=== PATIENT | female | born 1935 | race Caucasian/White ===

== ENCOUNTER 2016-08-12 18:37 | Inpatient (IN) | payer MEDICARE, OTHER ==
--- NOTE | ~2016-08-12 | EKG ---
PATIENT: AMBROCIO ARENAS UNIT #: [id number] Ventricular Rate: 58 BPM Atrial Rate: 58 BPM QRS Duration: 124 ms Q-T Interval: 450 ms QTC Calculation(Bezet): 441 ms Calculated R [place]: -52 degrees Calculated T [place]: 70 degrees Diagnosis Line: Sinus rhythm with 1st degree A-V block Diagnosis Line: Left anterior fascicular block Diagnosis Line: Nonspecific T wave abnormality Baseline wander Diagnosis Line: Abnormal ECG Diagnosis Line: When compared with ECG of 02-AUG-2015 13:50, Diagnosis Line: Current undetermined rhythm precludes rhythm Diagnosis Line: comparison, needs review Diagnosis Line: ST now depressed in Inferior leads Diagnosis Line: Nonspecific T wave abnormality has replaced Diagnosis Line: inverted T waves in Inferior leads Diagnosis Line: Nonspecific T wave abnormality, worse in Lateral Diagnosis Line: leads Diagnosis Line: Confirmed by MIGUEL TRUJILLO MD ([id number]) on 08/16/2016 Diagnosis Line: 10:38:32 PM INTERPRETING MD: CASSANDRA DAO
--- NOTE | ~2016-08-12 | DS ---
Unit #: [id number] #: [id number] Patient: AMBROCIO ARENAS [id number] [facility]. [place], [place] [address] [id number] I MR#: [id number] NAME: AMBROCIO ARENAS ROOM: 47 Age: 81 Sex: F Admission Date: 08/12/2016 : 1935 Discharge Date: 08/14/2016 Attending Physician: Akira Adair M.D. Primary Care Physician: Coleman Bustillos M.D. DISCHARGE SUMMARY REASON FOR ADMISSION Dizziness. HISTORY OF PRESENT ILLNESS/HOSPITAL COURSE The patient is a very pleasant 81-year-old female with prior history of depression, atrial fibrillation, TIA/CVA in 2010, hypertension, seizure disorder, who presented to the ER with complaints of dizziness, difficulty with ambulation, and profound weakness. Please see H and P for complete details. She underwent a CT head, which did not reveal an acute process. Chest x-ray was also negative. Initial urinalysis was positive and thus she was admitted for UTI and possible TIA/stroke evaluation. MRI of the brain with and without contrast was performed on 08/13/2016 did reveal no acute findings within the brain. There was atrophy with chronic small vessel ischemic change in the white matter. There is a small area of chronic hemosiderin deposition in the right frontal white matter, which may be related to an old hemorrhagic stroke. It was nonspecific. MRA head was also performed, which did not reveal any acute aneurysm. There was sparse flow which was noted in the distal INVOICING SPECIALIST and MCA branches. It was artifactual versus true volume decrease; however, the patient did show marked improvement after receiving IV antibiotics while she was here. In fact, the majority of her deficits including dizziness as well as difficulty with ambulation improved dramatically. Final urine culture result reveal E coli was sensitive to Rocephin while she was here and at the time of discharge, she was given a prescription for Omnicef. It was also noted her B12 level was 384. It was replenished with B12 while she was here and at time of discharge, it was recommended that she have a discussion with her primary care physician for possible outpatient management. At this point in time, she is otherwise stable to be discharged home. She will follow up with her primary care physician in regard to the B12 deficiency. She will also require repeat urinalysis in approximately 7 to 10 days. FINAL DISCHARGE DIAGNOSES 1. Dizziness/immobility syndrome with acute onset. 2. Prior history of cerebrovascular accident in 2010 with no acute Unit #: [id number] #: [id number] Patient: AMBROCIO ARENAS process noted in this hospital admission. 3. Underlying history of atrial fibrillation, on chronic anticoagulation with Coumadin. 4. Depression. 5. Hypertension. 6. Seizure disorder. FINAL DISCHARGE MEDICATIONS Coumadin 10 mg p.o. daily, Tegretol 100 mg p.o. b.i.d., Tegretol 200 mg p.o. q.h.s., Lexapro 20 mg p.o. daily, Norvasc 10 mg p.o. daily, Omnicef 300 mg p.o. b.i.d. for 6 days, Lotensin 20 mg p.o. daily, multivitamin daily, omeprazole 40 mg p.o. daily. DISCHARGE CONDITION Stable. DISCHARGE DISPOSITION Home. Dictated by... Eliane Yen/khurram TD: 08/15/2016 22:20 JOB #: [id number] DISCHARGE SUMMARY Page 1 of 1 X Akira Adair MD X DISCHARGE SUMMARY
--- NOTE | ~2016-08-12 | MR134 ---
[facility] A Service of [facility] RADIOLOGY TEXT RESULTS PATIENT: AMBROCIO ARENAS LOCATION: [facility]05-23 : 34 UNIT #: [id number] AGE: [address]: Akira Adair MD SEX: F ORDER DR: [id number] [facility] [address] [place], [place] [address] [id number] I MR#: [id number] Acc #: [id number] NAME: AMBROCIO ARENAS : 1935 SEX: F STUDY DATE/TIME: 08/13/2016 17:17 UNIT: [facility] ROOM: [facility] STUDY DESCRIPTION: MR MRA Neck Wo Contrast Attending Physician: Akira Adair M.D. Ordering Physician: Akira Adair M.D. Primary Care Physician: Coleman Bustillos M.D. MRI CENTER REPORT This report is preliminary unless electronic signature is present. EXAM MRA neck 08/13/2016 HISTORY Dizziness and ataxia with nausea and vomiting for one day. Prior history of seizures and stroke. TECHNIQUE Noncontrast 2D izsp-mh-rdtdry images were obtained through the neck. 3D reformatted images of the arterial system were obtained. COMPARISON No comparison. FINDINGS The exam is motion-degraded. Allowing for the artifact, no definite stenosis by NASCET criteria is seen in the cervical, vertebral or carotid arteries. The left vertebral artery is slightly dominant but both appear widely patent. IMPRESSION Allowing for motion, the examination is essentially negative. There is no evidence of stenosis by NASCET criteria and the carotid and vertebral arteries within the neck. Dictated by... Woody Causey Jr., M.D. THIS IS AN ELECTRONICALLY VERIFIED REPORT Woody Causey Jr., M.D. at 08/16/2016 7:28 AM [facility] A Service [facility] RADIOLOGY TEXT RESULTS PATIENT: AMBROCIO ARENAS LOCATION: [facility]05-23 : 34 UNIT #: [id number] AGE: [address]: Akira Adair MD SEX: F ORDER DR: GOYO/rafa TD: 08/14/2016 02:55 JOB #: [id number] MRI CENTER REPORT Page 1 of 1 COPY
--- NOTE | ~2016-08-12 | MR17 ---
[facility] A Service of [facility] RADIOLOGY TEXT RESULTS PATIENT: AMBROCIO ARENAS LOCATION: [place] [address]- : 34 UNIT #: [id number] AGE: [address]: Akira Adair MD SEX: F ORDER DR: [id number] [facility] [address] [place], [place] [address] [id number] I MR#: [id number] Acc #: [id number] NAME: AMBROCIO ARENAS : 1935 SEX: F STUDY DATE/TIME: 08/13/2016 16:48 UNIT: [facility] ROOM: [facility] STUDY DESCRIPTION: MR Brain WWo Contrast Attending Physician: Akira Adair M.D. Ordering Physician: Akira Adair M.D. Primary Care Physician: Coleman Bustillos M.D. MRI CENTER REPORT This report is preliminary unless electronic signature is present. EXAM MRI brain 08/13/2016 HISTORY Dizziness and ataxia with nausea and vomiting for one day. Previous history of seizure and stroke. TECHNIQUE Multisequence, multiplanar imaging was performed through the brain before and after the IV administration of 16 mL of MultiHance contrast. COMPARISON Head CT performed 08/12/2016. FINDINGS Diffusion imaging reveals no evidence of acute or subacute ischemia. There is a mild degree of generalized atrophy. Ventricular size configuration are within normal limits. Scattered T2 hyperintensities in the white matter are compatible with chronic small vessel ischemic disease. No evidence of hemorrhage. Old infarct noted in the white matter of the right frontal lobe adjacent to the anterior horn of the right lateral ventricle. Small lacunar infarct present in the right basal ganglia as well. There are no masses, and there is no pathologic contrast enhancement. The major intracranial flow voids are maintained. There is some hemosiderin deposition in the right frontal white matter which may be the site of an old hemorrhagic small stroke. IMPRESSION 1. No acute findings in the brain. No evidence of acute stroke or hemorrhage. 2. No pathologic contrast enhancement. No masses. 3. Atrophy with chronic small vessel ischemic disease in the white [facility] A Service of [facility] RADIOLOGY TEXT RESULTS PATIENT: AMBROCIO ARENAS LOCATION: [facility] 471-01 : 34 UNIT #: [id number] AGE: [address]: Akira Adair MD SEX: F ORDER DR: matter. 4. Small area of chronic hemosiderin deposition in the right frontal white matter may be related to an old hemorrhagic stroke. It is nonspecific. Dictated by... Woody Causey Jr., M.D. THIS IS AN ELECTRONICALLY VERIFIED REPORT Woody Causey Jr., M.D. at 08/16/2016 7:28 AM GOYO/rafa TD: 08/14/2016 02:24 JOB #: [id number] MRI CENTER REPORT Page 1 of 1 COPY
--- NOTE | ~2016-08-12 | HP ---
Unit #: [id number] #: [id number] Patient: AMBROCIO ARENAS [id number] [place], [place] [address] [id number] MR#: [id number] NAME: AMBROCIO ARENAS ROOM: Age: 81 Sex: F Admission Date: 08/12/2016 : 1935 Attending Physician: Woody Bernstein M.D. Primary Care Physician: Coleman Bustillos M.D. HISTORY AND PHYSICAL CHIEF COMPLAINT Dizziness. HISTORY OF PRESENT ILLNESS The patient is an 81-year-old legally blind female with a history of a depression and afib and hypertension and seizure, brought to the emergency room complaining of the dizziness. The patient stated the dizziness started around lunchtime and the patient was unable to get up and walk and unable to eat. The patient also complains of the headache and nausea and vomiting associated with that. The patient had a workup with a CT of the head and chest x-ray, both negative, and the UA shows positive nitrite and 10 to 25 urine RBCs and urine WBCs 2 to 5 and 4+ urine bacteria. Patient is being admitted for the above reasons; denies any fever, chills, any head trauma or any new medications. PAST MEDICAL HISTORY History of afib, depression, hypertension and the seizures. PAST SURGICAL HISTORY History of right and left knee surgery, right breast surgery, hysterectomy, back surgery. HOME MEDICATIONS She is on Norvasc, Lotensin, Carbatrol omeprazole, Lexapro and Coumadin, Centrum and Tegretol. ALLERGIES Honey and IV dye. SOCIAL HISTORY No history of smoking, alcohol or any illicit drug abuse. FAMILY HISTORY Reviewed and none. REVIEW OF SYMPTOMS Fourteen-point review of symptoms performed and only pertinent positive findings are described above, remaining are negative. PHYSICAL EXAMINATION GENERAL APPEARANCE: On examination the patient is lying on a bed not in acute distress. VITAL SIGNS: Temperature 98.4, pulse 56, respiratory rate 16, blood Unit #: [id number] #: [id number] Patient: AMBROCIO ARENAS pressure 158/77, sating 94% at room air. HEENT: Head atraumatic, normocephalic. Extraocular movements are intact. Dry mucous membranes. NECK: Supple. No JVD. LUNGS: Clear to auscultation bilaterally. HEART: Irregular rate and rhythm. ABDOMEN: Soft, positive bowel sounds. EXTREMITIES: No cyanosis. No clubbing. NEUROLOGIC: Awake, alert, oriented. No gross focal motor deficit. DIAGNOSTIC STUDIES LABORATORY DATA: Glucose 140, BUN 16, creatinine 0.7, sodium 138, potassium 4, chloride 100, bicarb 26, calcium 8.7, total protein 6.9, albumin 4.4, AST 31, ALT 17, alkaline phosphatase 130, INR is 2.1, troponin less than 0.05, WBC 3.5, hemoglobin 14, hematocrit 42.5, platelets 175. UA shows positive nitrite, 1+ protein and 10 to 25 urine RBCs and 2 to 5 urine WBCs and 4+ urine bacteria. CARDIOVASCULAR: The EKG shows a rate of 58 beats per minute and left anterior fascicular block and nonspecific T-wave abnormalities. IMAGING: The chest x-ray shows mild interstitial prominence, old calcified granulomatous disease. The CT of the head showed volume loss and white matter change. No significant interval change since . No acute abnormality. ASSESSMENT 1. Dizziness. 2. Urinary tract infection/bacteruria. 3. Nausea and vomiting. 4. Atrial fibrillation. PLAN Plan to admit the patient to the observation with the telemetry. Will start empirically with IV Rocephin and follow up with urine cultures and continue with the Zofran for the nausea and vomiting and repeat the labs again in the morning and further recommendations will follow as more lab results are available. Dictated by Eliane Nj/arnold TD: 08/12/2016 20:40 JOB #: [id number] Unit #: [id number] #: [id number] Patient: AMBROCIO ARENAS HISTORY AND PHYSICAL Page 1 of 1 X X HISTORY AND PHYSICAL
--- NOTE | ~2016-08-12 | CT71 ---
[facility] A Service of [facility] RADIOLOGY TEXT RESULTS PATIENT: AMBROCIO ARENAS LOCATION: [facility] : 34 UNIT #: [id number] AGE: [address]: Akira Adair MD SEX: F ORDER DR: [id number] [facility] [place], [place] [address] [id number] P MR#: [id number] Acc #: [id number] NAME: AMBROCIO ARENAS : 1935 SEX: F STUDY DATE/TIME: 08/12/2016 16:08 UNIT: KIM ROOM: STUDY DESCRIPTION: CT Head Wo Contrast Attending Physician: Woody Bernstein M.D. Ordering Physician: Woody Bernstein M.D. Primary Care Physician: Colmean Bustillos M.D. MEDICAL IMAGING REPORT This report is preliminary unless electronic signature is present EXAM Head CT, no contrast, 08/12/2016. COMPARISON Prior head CT, 04/07/2016. PROCEDURE Routine unenhanced head CT. HISTORY Dizziness, nausea and vomiting, and atrial fibrillation. FINDINGS There is no intracranial hemorrhage. There is no mass or hydrocephalus. There is volume loss and white matter change, nonspecific, but typical of small vessel disease. No acute abnormality is seen. No interval change since 04/07/2016. TECHNIQUE This CT exam was performed with one or more of the following radiation dose reduction techniques: automatic exposure control, adjustment of mA and/or kV according to patient size, and iterative reconstruction. IMPRESSION Volume loss and white matter change; no significant interval change since 04/07/2016. No acute abnormality. Dictated by... Alexandru Ramirez M.D. [facility] A Service of [facility] RADIOLOGY TEXT RESULTS PATIENT: AMBROCIO ARENAS LOCATION: [facility] : 34 UNIT #: [id number] AGE: [address]: Akira Adair MD SEX: F ORDER DR: THIS IS AN ELECTRONICALLY VERIFIED REPORT Alexandru Ramirez M.D. at 08/16/2016 2:36 PM CHINTAN/shawn TD: 08/12/2016 18:02 JOB #: [id number] MEDICAL IMAGING REPORT Page 1 of 1 COPY
--- NOTE | ~2016-08-12 | MR122 ---
[facility] A Service of [facility] RADIOLOGY TEXT RESULTS PATIENT: AMBROCIO ARENAS LOCATION: [facility] 471-01 : 34 UNIT #: [id number] AGE: [address]: Akira Adair MD SEX: F ORDER DR: [id number] [facility] [address] [place], [place] [address] [id number] I MR#: [id number] Acc #: [id number] NAME: AMBROCIO ARENAS : 1935 SEX: F STUDY DATE/TIME: 08/13/2016 17:07 UNIT: [facility] ROOM: [facility] STUDY DESCRIPTION: MR MRA Head Wo Contrast Attending Physician: Akira Adair M.D. Ordering Physician: Akira Adair M.D. Primary Care Physician: Coleman Bustillos M.D. MRI CENTER REPORT This report is preliminary unless electronic signature is present. EXAM MRA brain 08/13/2016 HISTORY Onset of dizziness and ataxia with nausea and vomiting yesterday. Prior seizure history and prior history of stroke. TECHNIQUE 3D contrast lvsa-np-jfyktl images were obtained through the brain. 3D reformatted images of the arterial system were obtained. Study is repeated due to motion. No comparison. FINDINGS Exam is degraded by motion. The vertebral and basilar arteries are normal. Relatively sparse flow is demonstrated in distal MVA and SHOW WORKER branches on both sides of the brain. This may be due to technical artifact on the exam accentuated by motion. Normal flow is seen in both anterior cerebral arteries. No aneurysm is seen. Some of the reformatted images suggest an area of severe narrowing or cutoff in the right MCA prior to its bifurcation, but this cannot be confirmed on the source images. Consider head and neck CT angiogram for follow-up if the patient's renal function permits. IMPRESSION Motion-degraded exam, despite repeating it. No definite aneurysm is seen. There is relatively sparse flow in the distal SHOW WORKER and MCA branches. It is unclear if this is artifactual or a true flow volume decrease. Artifact is favored to a large degree. Normal flow is demonstrated in both anterior cerebral arteries. Potential vascular cutoff just before the right MCA bifurcation is seen on some of the reformatted images but cannot be confirmed definitively on the source images and this could be artifactual as well. Consider follow-up with head and neck CT angiogram if patient's STS. [facility] A Service of [facility] & [facility] RADIOLOGY TEXT RESULTS PATIENT: AMBROCIO ARENAS LOCATION: [place] [address] : 34 UNIT #: [id number] AGE: [address]: Akira Adair MD SEX: F ORDER DR: renal function permits. Dictated by... Woody Causey Jr., M.D. THIS IS AN ELECTRONICALLY VERIFIED REPORT Woody Causey Jr., M.D. at 08/16/2016 7:28 AM GOYO/rafa TD: 08/14/2016 02:35 JOB #: [id number] MRI CENTER REPORT Page 1 of 1 COPY
--- NOTE | ~2016-08-12 | CR72 ---
[facility] A Service of [facility] RADIOLOGY TEXT RESULTS PATIENT: AMBROCIO ARENAS LOCATION: [place] [address] : 34 UNIT #: [id number] AGE: [address]: Akira Adair MD SEX: F ORDER DR: [id number] [facility] [address] [place], [place] [address] [id number] P MR#: [id number] Acc #: [id number] NAME: AMBROCIO ARENAS : 1935 SEX: F STUDY DATE/TIME: 08/12/2016 15:48 UNIT: KIM ROOM: STUDY DESCRIPTION: CR Chest Single View Portable Attending Physician: Woody Bernstein M.D. Ordering Physician: Woody Bernstein M.D. Primary Care Physician: Coleman Bustillos M.D. MEDICAL IMAGING REPORT This report is preliminary unless electronic signature is present EXAM Portable chest. HISTORY 81-year-old female with dizziness today. COMPARISON STUDIES There are no comparisons. FINDINGS Low-volume inspiration. Mild interstitial prominence. Old calcified granulomatous disease. Atherosclerotic calcifications of the aorta. Heart size probably within normal limits. IMPRESSION Mild interstitial prominence. Old calcified granulomatous disease. Dictated by... Godwin Perez M.D. THIS IS AN ELECTRONICALLY VERIFIED REPORT Godwin Perez M.D. at 08/13/2016 9:04 AM ASIA/derek TD: 08/12/2016 17:21 JOB #: [id number] MEDICAL IMAGING REPORT Page 1 of 1 COPY
[2016-08-12 16:20] LABS: POC - CKMB 1.9 ng/mL (0.0-7.9); POC - TROPONIN <0.05 ng/mL (<=0.05)
[2016-08-12 16:25] LABS: BASOPHIL% 1.2 % (0-2.5); EOSINOPHIL# 0.3 X10e3 (0-0.7); EOSINOPHIL% 7.2 % (0.0-7.0); HEMATOCRIT 42.5 % (35.0-45.0); LYMPHOCYTE# 0.9 X10e3 (1.0-3.5); LYMPHOCYTE% 26.2 % (17.0-45.0); MEAN CELL VOLUME 85.8 FL (83-96); MEAN CORPUSCULAR HEMOGLOBIN 28.2 PG (28-34); MEAN CORPUSCULAR HGB CONC 32.9 g/dL (30-36); MEAN PLATELET VOLUME 8.4 FL (6.5-11.5); MONOCYTE# 0.4 X10e3 (0-1.0); MONOCYTE% 10.1 % (3.0-12.0); NEUTROPHIL# 1.9 X10e3 (1.5-7.1); NEUTROPHIL% 55.3 % (40-75); PLATELET COUNT 175 X10e3 (140-420); RED BLOOD COUNT 4.96 X10e (3.90-5.30); RED CELL DISTRIBUTION WIDTH 13.4 % (11.0-15.5); WHITE BLOOD COUNT 3.5 X10e3 (4.0-10.5)
[2016-08-12 16:37] LABS: INR 2.1; PROTHROMBIN TIME (PATIENT) 22.3 SECONDS (9.6-11.5)
[2016-08-12 16:37] LABS: DIFF IND NO
[2016-08-12 16:43] LABS: ALBUMIN SERUM 4.4 g/dL (3.5-5.0); ALKALINE PHOSPHATASE 130 U/L (32-92); ALT (SGPT) 17 U/L (10-40); AST (SGOT) 31 U/L (10-42); BILIRUBIN,TOTAL 0.8 mg/dL (0.2-2.0); BLOOD UREA NITROGEN 16 mg/dL (9-23); BUN/CREATININE RATIO 22.85; CALCIUM SERUM 8.7 mg/dL (8.4-10.2); CARBON DIOXIDE 26 mmol/L (22-31); CHLORIDE 100 mmol/L (100-111); CREATININE SERUM 0.7 mg/dL (0.6-1.4); GLOM FILT RATE Estimated 80.7 mL/min (>60); GLUCOSE FASTING 140 mg/dL (70-110); PROTEIN TOTAL SERUM 6.9 g/dL (6.0-8.3); SODIUM 138 mmol/L (135-145)
[2016-08-12 16:48] LABS: BILIRUBIN, DIRECT <0.1 mg/dL (0.0-0.2); BILIRUBIN,INDIRECT 0.7 mg/dL (0.0-0.9)
[2016-08-12 17:17] LABS: URINE SOURCE CLEAN CATCH
[2016-08-12 17:33] LABS: URINE APPEARANCE CLEAR; URINE BILIRUBIN NEG (NEG); URINE BLOOD 1+ (NEG); URINE COLOR YELLOW; URINE GLUCOSE NEG (NEG); URINE KETONE NEG (NEG); URINE LEUKOCYTE ESTERASE NEG (NEG); URINE NITRATE POS (NEG); URINE PROTEIN 1+ (NEG); URINE SPECIFIC GRAVITY 1.014 (1.003-1.035); URINE UROBILINOGEN 0.2 MG/DL (NEG)
[2016-08-12 17:39] LABS: CULTURE INDICATED? YES; URINE BACTERIA AUWI 4+ (NEGATIVE); URINE SQUAMOUS EPITHELIAL CELL NONE SEEN /[HPF]
[2016-08-12] MEDS ORDERED: LOTENSIN20 MG PO (19:14)
[2016-08-12] MEDS ORDERED: NORVASC10 MG PO (19:14)
[2016-08-12] MEDS ORDERED: OMEPRAZOLE40 M1 PO (19:15)
[2016-08-12] MEDS ORDERED: CARBATROL100 MG PO (19:15)
[2016-08-12] MEDS ORDERED: LEXAPRO20 MG PO (19:16)
[2016-08-12] MEDS ORDERED: COUMADIN10 MG PO (19:16)
[2016-08-12] MEDS ORDERED: CENTRUM SILVER PO (19:16)
[2016-08-12] MEDS ORDERED: OCUVITE TABLET1 TA1 PO (19:16)
[2016-08-12] MEDS ORDERED: TEGRETOL PO (19:19)
[2016-08-13 04:15] LABS: EOSINOPHIL# 0.3 X10e3 (0-0.7); EOSINOPHIL% 7.4 % (0.0-7.0); HEMATOCRIT 38.6 % (35.0-45.0); HEMOGLOBIN 12.9 gm/dL (12.0-16.0); LYMPHOCYTE# 1.3 X10e3 (1.0-3.5); LYMPHOCYTE% 31.8 % (17.0-45.0); MEAN CORPUSCULAR HEMOGLOBIN 28.3 PG (28-34); MEAN CORPUSCULAR HGB CONC 33.3 g/dL (30-36); MEAN PLATELET VOLUME 7.9 FL (6.5-11.5); MONOCYTE# 0.5 X10e3 (0-1.0); MONOCYTE% 12.9 % (3.0-12.0); NEUTROPHIL% 46.9 % (40-75); PLATELET COUNT 162 X10e3 (140-420); RED BLOOD COUNT 4.54 X10e (3.90-5.30); RED CELL DISTRIBUTION WIDTH 12.9 % (11.0-15.5); WHITE BLOOD COUNT 4.2 X10e3 (4.0-10.5)
[2016-08-13 04:16] LABS: DIFF IND NO
[2016-08-13 04:18] LABS: PROTHROMBIN TIME (PATIENT) 21.4 SECONDS (9.6-11.5)
[2016-08-13 04:42] LABS: BUN/CREATININE RATIO 18.75; CALCIUM SERUM 8.4 mg/dL (8.4-10.2); CREATININE SERUM 0.8 mg/dL (0.6-1.4); GLOM FILT RATE Estimated 68.7 mL/min (>60); POTASSIUM 3.8 mmol/L (3.5-5.1)
[2016-08-14 03:28] LABS: HEMATOCRIT 40.2 % (35.0-45.0); HEMOGLOBIN 13.5 gm/dL (12.0-16.0); MEAN CELL VOLUME 84.4 FL (83-96); MEAN CORPUSCULAR HEMOGLOBIN 28.3 PG (28-34); MEAN CORPUSCULAR HGB CONC 33.5 g/dL (30-36); MEAN PLATELET VOLUME 7.9 FL (6.5-11.5); RED BLOOD COUNT 4.77 X10e (3.90-5.30); RED CELL DISTRIBUTION WIDTH 13.3 % (11.0-15.5); WHITE BLOOD COUNT 4.7 X10e3 (4.0-10.5)
[2016-08-14 04:01] LABS: BUN/CREATININE RATIO 23.75; CALCIUM SERUM 8.7 mg/dL (8.4-10.2); CREATININE SERUM 0.8 mg/dL (0.6-1.4); GLOM FILT RATE Estimated 68.7 mL/min (>60); POTASSIUM 3.7 mmol/L (3.5-5.1)
[2016-08-14] MEDS ORDERED: TEGRETOL-XR100 MG PO (14:41)
[2016-08-14] MEDS ORDERED: OMNICEF300 M1 PO (14:42)
== END 2016-08-14 15:25 | disposition home or self-care (01) | DRG 690 ==
LOC: CED 18:37 → CEDOF 19:10 → C4C 08-13 13:00
PROVIDERS: Emergency Medicine; Family Medicine; Internal Medicine; Physician Assistant Medical
DX: N39.0 Urinary tract infection, site not specified (principal); I48.91 Unspecified atrial fibrillation; G40.909 Epilepsy, unspecified, not intractable, without status epilepticus; I10 Essential (primary) hypertension; E53.8 Deficiency of other specified B group vitamins; F32.9 Major depressive disorder, single episode, unspecified; B96.20 Unspecified Escherichia coli [E. coli] as the cause of diseases classified elsewhere; R42 Dizziness and giddiness; M62.3 Immobility syndrome (paraplegic); Z86.73 Personal history of transient ischemic attack (TIA), and cerebral infarction without residual deficits; Z79.01 Long term (current) use of anticoagulants; Z91.041 Radiographic dye allergy status; Z91.018 Allergy to other foods
CPT/HCPCS: 36415; 70450; 70544; 70547; 70553; 71010; 80048; 80076; 81003; 82550; 82553; 82607; 82947; 84443; 84484; 85025; 85027; 85610; 87086; 87088; 87186; 93005; 93306; 96361; 96374; 97110; 97116; 97163; 97166; 97530; 99285; A9577; G8978-GP; G8979-GP; G8987-GO; G8988-GO; J0360; J0696; J2405; J3420